=== PATIENT | female | born 1990 | race Two or more races ===

== ENCOUNTER 2023-10-31 17:32 | Emergency (ER) | payer SELFPAY ==
[~2023-10-31] VITALS: Ht 162.6 cm; Wt 77.5 kg
[2023-10-31 20:24] VITALS: BP 126/79; PULSE 84; RESP 14; O2SAT 97
[2023-10-31] MEDS ORDERED: MUPI2OIN2 EX (21:05)
[2023-10-31] MEDS ORDERED: IBUP1TAB5 PO (21:05)
== END 2023-10-31 21:34 | disposition home or self-care (01) ==
LOC: ER 17:32 → EDBD 17:32 → ER 21:34
DX: S83.8X1A Sprain of other specified parts of right knee, initial encounter (principal); S93.492A Sprain of other ligament of left ankle, initial encounter; S00.83XA Contusion of other part of head, initial encounter; M25.472 Effusion, left ankle; Y04.2XXA Assault by strike against or bumped into by another person, initial encounter; Y93.89 Activity, other specified; Y92.89 Other specified places as the place of occurrence of the external cause; Y99.8 Other external cause status
CPT/HCPCS: 29515; 73564; 73610